=== PATIENT | female | born 1985 | race African-American/Black ===

== ENCOUNTER 2018-02-20 13:52 | Emergency (ER) | payer MEDICAID ==
[2018-02-20 16:05] LABS: ABS Basophils 0 10^3/ul (0-0.2); ABS Eosinophils 0 10^3/ul (0-0.6); ABS Lymphocytes 1.5 10^3/ul (1.0-4.8); ABS Monocytes 0.6 10^3/ul (0-0.8); ABS Neutrophils 7.1 10^3/ul (1.5-7.7); ABS Nucleated RBC 0 10^3/ul; Eosinophil % 0.5 % (0-6); Hematocrit 40 % (35-47); Hemoglobin 13.2 g/dl (12.0-16.0); Mean Corpuscular HGB Conc 33 g/dl (31-36); Mean Corpuscular Hemoglobin 30 pg (27-31); Mean Corpuscular Volume 89 fL (80-97); Mean Platelet Volume 8.7 um3 (7.4-10.4); Nucleated Red Blood Cells % 0; Platelet Count 205 10^3/ul (150-450); Red Blood Count 4.48 10^6/ul (4.0-5.4); Red Cell Distribution Width 14 % (10.5-15); White Blood Count 9.2 10^3/ul (3.5-10.8)
[2018-02-20 16:10] LABS: Urine Appearance Clear; Urine Blood 2+ (Negative); Urine Color Straw; Urine Ketones Negative (Negative); Urine Protein Negative (Negative); Urine Specific Gravity 1.006 (1.010-1.030); Urine Urobilinogen Negative (Negative)
[2018-02-20 16:32] LABS: EGFR Non-African American 85.5 (>60)
--- NOTE | 2018-02-20 18:18 | RAD ---
Indication: LEFT pelvic pain and vaginal bleeding. Comparison: No relevant prior exams available on the [facility] PACS for comparison. Technique: Transabdominal pelvic ultrasound. Report: Unremarkable 9.0 x 4.1 x 4.9 cm uterus with 5.2 mm endometrium. Negative for free pelvic fluid. 3.2 x 2.3 x 2.0 cm RIGHT ovary with documented vascular flow is remarkable for small follicles only. 2.8 x 1.6 x 3.3 cm LEFT ovary with documented vascular flow is remarkable for small follicles only. No extra ovarian adnexal region lesions evident. IMPRESSION: Negative pelvic ultrasound.
--- NOTE | 2018-02-20 19:27 | ED ---
Duane Ortiz Natalie, scribed for Rakesh Madden MD on 02/20/18 at 1613 . Abdominal Pain/Female - HPI Summary HPI Summary: The patient is a 32 y/o F presenting to the ED c/o intermittent LLQ pain and vaginal spotting since yesterday morning at 04:00. She states the pain is crampy and sharp and feels like it is where her ovary is. She rates the pain 6/ 10 in severity. Nothing alleviates or aggravates the pain. She reports that she had her period two weeks ago, but it only lasted for 2 days instead of 6 days like it usual does. Her LNMP was in November. She does not take control, and she took an at home test which was negative. Smoker. - History of Current Complaint Chief Complaint: EDGeneral Stated Complaint: VAGINAL BLEEDING Time Seen by Provider: 02/20/18 14:52 Hx Obtained From: Patient Onset/Duration: Sudden Onset, Lasting Days - started yesterday morning, Still Present Timing: Intermittent Episode Lasting Severity Initially: Moderate Severity Currently: Moderate Pain Intensity: 6 Pain Scale Used: 0-10 Numeric Location: Discrete At: LLQ Radiates: No Character: Sharp, Cramping Aggravating Factor(s): Nothing Alleviating Factor(s): Nothing Associated Signs and Symptoms: Positive: Vaginal Bleeding Allergies/Adverse Reactions: Allergies Allergy/AdvReac Type Severity Reaction Status Date / Time No Known Allergies Allergy Verified 02/20/18 13:59 Home Medications: Home Medications risperiDONE LIQ (NF)* [Risperdal LIQ (NF)*] 2 mg PO DAILY 02/20/18 [History Confirmed 02/20/18] PMH/Surg Hx/FS Hx/Imm Hx Endocrine/Hematology History: Denies: Hx Diabetes Cardiovascular History: Denies: Hx Hypertension Infectious Disease History: No Infectious Disease History: Denies: Traveled Outside the [place] in Last 30 Days - Family History Known Family History: Negative: Cardiac Disease, Diabetes - Social History Alcohol Use: Occasionally Substance Use Type: Reports: Excessive Caffeine Smoking Status (MU): Heavy Every Day Tobacco Smoker Review of Systems Positive: Abdominal Pain Positive: other - vaginal spotting All Other Systems Reviewed And Are Negative: Yes Physical Exam - Summary Physical Exam Summary: Appearance: The patient is well-nourished in no acute distress and in no acute pain. Skin: The skin is warm and dry and skin color reflects adequate perfusion. HEENT: The head is normocephalic and atraumatic. The pupils are equal and reactive. The conjunctivae are clear and without drainage. Nares are patent and without drainage. Mouth reveals moist mucous membranes and the throat is without erythema and exudate. The external ears are intact. The ear canals are patent and without drainage. The tympanic membranes are intact. Neck: The neck is supple with full range of motion and non-tender. There are no carotid bruits. There is no neck vein distension. Respiratory: Chest is non-tender. Lungs are clear to auscultation and breath sounds are symmetrical and equal. Cardiovascular: Heart is regular rate and rhythm. There is no murmur or rub auscultated. There is no peripheral edema and pulses are symmetrical and equal. Abdomen: The abdomen is soft and tender in the LLQ. There are normal bowel sounds heard in all four quadrants and there is no organomegaly palpated. Musculoskeletal: There is no back tenderness noted. Extremities are non-tender with full range of motion. There is good capillary refill. There is no peripheral edema or calf tenderness elicited. Neurological: Patient is alert and oriented to person, place and time. The patient has symmetrical motor strength in all four extremities. Cranial nerves are grossly intact. Deep tendon reflexes are symmetrical and equal in all four extremities. Psychiatric: The patient has an appropriate affect and does not exhibit any anxiety or depression. Triage Information Reviewed: Yes Vital Signs On Initial Exam: Initial Vitals Temp Pulse Resp BP Pulse Ox 98.2 F 74 18 127/71 99 02/20/18 13:55 02/20/18 13:55 02/20/18 13:55 02/20/18 13:55 02/20/18 13:55 Vital Signs Reviewed: Yes Diagnostics - Vital Signs Vital Signs Temp Pulse Resp BP Pulse Ox 02/20/18 14:44 72 122/70 99 02/20/18 14:14 69 109/71 99 02/20/18 13:55 98.2 F 74 18 127/71 99 - Laboratory Lab Results: Lab Results 02/20/18 02/20/18 02/20/18 Range/Units 15:45 15:47 15:47 WBC 9.2 (3.5-10.8) 10^3/ul RBC 4.48 (4.0-5.4) 10^6/ul Hgb 13.2 (12.0-16.0) g/dl Hct 40 (35-47) % MCV 89 (80-97) fL MCH 30 (27-31) pg MCHC 33 (31-36) g/dl RDW 14 (10.5-15) % Plt Count 205 (150-450) 10^3/ul MPV 8.7 (7.4-10.4) um3 Neut % (Auto) 76.9 (38-83) % Lymph % (Auto) 16.0 L (25-47) % [place] % (Auto) 6.1 (0-7) % Eos % (Auto) 0.5 (0-6) % Baso % (Auto) 0.5 (0-2) % Absolute Neuts (auto) 7.1 (1.5-7.7) 10^3/ul Absolute Lymphs (auto) 1.5 (1.0-4.8) 10^3/ul Absolute Monos (auto) 0.6 (0-0.8) 10^3/ul Absolute Eos (auto) 0 (0-0.6) 10^3/ul Absolute Basos (auto) 0 (0-0.2) 10^3/ul Absolute Nucleated RBC 0 10^3/ul Nucleated RBC % 0 Sodium 138 L (139-145) mmol/L Potassium 3.8 (3.5-5.0) mmol/L Chloride 102 (101-111) mmol/L Carbon Dioxide 29 (22-32) mmol/L Anion Gap 7 (2-11) mmol/L BUN 13 (6-24) mg/dL Creatinine 0.79 (0.51-0.95) mg/dL Est GFR ( Amer) 109.9 (>60) Est GFR (Non-Af Amer) 85.5 (>60) BUN/Creatinine Ratio 16.5 (8-20) Glucose 85 (70-100) mg/dL Calcium 9.1 (8.6-10.3) mg/dL Total Bilirubin 0.60 (0.2-1.0) mg/dL AST 12 L (13-39) U/L ALT 14 (7-52) U/L Alkaline Phosphatase 40 (34-104) U/L Total Protein 7.0 (6.4-8.9) g/dL Albumin 4.3 (3.2-5.2) g/dL Globulin 2.7 (2-4) g/dL Albumin/Globulin Ratio 1.6 (1-3) Beta HCG, Quant < 0.60 mIU/mL Urine Color Straw Urine Appearance Clear Urine pH 8.0 (5-9) Ur Specific [place] 1.006 L (1.010-1.030) Urine Protein Negative (Negative) Urine Ketones Negative (Negative) Urine Blood 2+ A (Negative) Urine Nitrate Negative (Negative) Urine Bilirubin Negative (Negative) Urine Urobilinogen Negative (Negative) Ur Leukocyte Esterase Negative (Negative) Urine WBC (Auto) Absent (Absent) Urine RBC (Auto) Trace(0-2/hpf) (Absent) Ur Squamous Epith Cells Present A (Absent) Urine Bacteria Absent (Absent) Urine Glucose Negative (Negative) Result Diagrams: 02/20/18 15:47 02/20/18 15:47 Lab Statement: Any lab studies that have been ordered have been reviewed, and results considered in the medical decision making process. - Ultrasound No standard instances Ultrasound Interpretation: No Acute Changes - Pelvis US: Negative pelvic ultrasound. ED physician has reviewed this report. Ultrasound Interpretation Completed By: Radiologist Re-Evaluation - Re-Evaluation First Eval Re-Evaluation Time: 19:12 Change: Improved - I spoke with the patient about US results and discharge home. Abdominal Pain Fem Course/Dx - Course Course Of Treatment: Ms. Hinojosa presents complaining of left lower quadrant pain and vaginal spotting for a day or 2. The pain is sharp and crampy she is not nauseated there are no exacerbating or relieving factors. She had a light period about 2 weeks ago and the last normal period was about 6 weeks ago. She denies any vaginal discharge or pain. Labs are within normal limits as is a transvaginal ultrasound. I recommend she follow up closely with [facility] she may need a pelvic exam which she is not interested in tonight. - Diagnoses Provider Diagnoses: Pelvic pain Discharge - Sign-Out/Discharge Documenting (check all that apply): Discharge/Admit/Transfer - Discharge Plan Condition: Stable Disposition: HOME Patient Education Materials: Pelvic Pain in Women (ED) Referrals: Jailyn Hale MD [Medical Doctor] - 3 Days Additional Instructions: Follow up with Dr. Hale, [facility], this week. Return to the emergency department for any new or worsening symptoms. - Billing Disposition and Condition Condition: STABLE Disposition: HOME The documentation as recorded by the Duane blue Natalie accurately reflects the service I personally performed and the decisions made by me, Rakesh Madden MD.
[2018-02-20 19:28] VITALS: BP 116/71
== END 2018-02-20 19:27 | disposition home or self-care (01) ==
LOC: ED 13:52
DX: R10.2 Pelvic and perineal pain (principal); R10.32 Left lower quadrant pain; N93.9 Abnormal uterine and vaginal bleeding, unspecified; F17.200 Nicotine dependence, unspecified, uncomplicated
CPT/HCPCS: 36415; 76856; 80053; 81003; 81015; 84702; 85025; 99283

== ENCOUNTER 2018-08-22 13:19 | Emergency (ER) | payer MEDICAID, OTHER ==
--- NOTE | 2018-08-22 15:49 | ED ---
Medical Screening - HPI Summary HPI Summary: Patient is a 32-year-old female who presents to the emergency department requesting medication refill. Patient has a history of anxiety and depression. Patient notes she recently moved to the area from [facility]. Patient states she had a 30 day history from her last PCP. Patient states she did have an appointment today with a new PCP in the area but states she was lights her appointment was canceled. Pt. has an appointment with a new therapist tomorrow. She also rescheduled her PCP appointment for Wednesday. Patient has been prescribed . Risperdal 2mg and lexapro 10mg. Pt. denies SI or HI. She denies past medical hx. Sxs are mild in severity. No current modifying factor. - History of Current Complaint Chief Complaint: EDGeneral Stated Complaint: PRESCRIPTION REFILL Time Seen by Provider: 08/22/18 14:54 PMH/Surg Hx/FS Hx/Imm Hx Previously Healthy: Yes Endocrine/Hematology History: Denies: Hx Diabetes Cardiovascular History: Denies: Hx Hypertension Infectious Disease History: No Infectious Disease History: Denies: Traveled Outside the in Last 30 Days - Family History Known Family History: Negative: Cardiac Disease, Diabetes - Social History Occupation: Unemployed Lives: With Family Alcohol Use: Occasionally Substance Use Type: Reports: None Smoking Status (MU): Heavy Every Day Tobacco Smoker Review of Systems Psychological: Normal All Other Systems Reviewed And Are Negative: Yes Physical Exam Triage Information Reviewed: Yes Vital Signs On Initial Exam: Initial Vitals Temp Pulse Resp BP Pulse Ox 99.0 F 98 18 145/82 100 08/22/18 13:42 08/22/18 13:42 08/22/18 13:42 08/22/18 13:42 08/22/18 13:42 Vital Signs Reviewed: Yes Appearance: Positive: Well-Appearing - Pt. sitting in chair in NAD. Significant other present. Skin: Positive: Warm, Dry Head/Face: Positive: Normal Head/Face Inspection Eyes: Positive: Normal, EOMI Neck: Positive: Supple Musculoskeletal: Positive: Normal, Strength/ROM Intact Neurological: Positive: Normal, CN Intact II-III Psychiatric: Positive: Affect/Mood Appropriate Diagnostics - Vital Signs Vital Signs Temp Pulse Resp BP Pulse Ox 08/22/18 13:42 99.0 F 98 18 145/82 100 - Laboratory Lab Statement: Any lab studies that have been ordered have been reviewed, and results considered in the medical decision making process. Course/Dx - Course Course Of Treatment: Pt. presenting requesting medication refill. She is mentally stable without thoughts of SI. Case discussed with Dr. Quispe. Will give 7 day supply of medication until she sees her new PCP on Wednesday. To f.u with her therapist tomorrow as scheduled. Pt. requesting work note. To return to ER if sxs change or worsen. - Diagnoses Provider Diagnoses: Medication refill Discharge - Sign-Out/Discharge Documenting (check all that apply): Patient Departure - Discharge Plan Condition: Good Disposition: HOME Prescriptions: Escitalopram (NF) [Lexapro 10 mg (NF)] 10 mg PO DAILY #7 tab risperiDONE TAB* [Risperdal*] 2 mg PO BEDTIME #7 tab Patient Education Materials: Medicine Refill (ED) Forms: *Work Release Referrals: [facility] [Outside] Additional Instructions: Follow up with your therapist and PCP as scheduled Take medication as directed Return to ER if symptoms change or worsen - Billing Disposition and Condition Condition: GOOD Disposition: Home
[2018-08-22 16:14] VITALS: BP 124/81
== END 2018-08-22 16:14 | disposition home or self-care (01) ==
LOC: ED 13:19
DX: F41.9 Anxiety disorder, unspecified (principal); F32.9 Major depressive disorder, single episode, unspecified; Z76.0 Encounter for issue of repeat prescription; F17.200 Nicotine dependence, unspecified, uncomplicated
CPT/HCPCS: 99282